=== PATIENT | male | born 1990 | race Caucasian/White ===

== ENCOUNTER 2017-12-21 05:39 | Emergency (ER) | payer OTHER ==
[~2017-12-21] VITALS: Ht 188 cm; Wt 122.5 kg
[2017-12-21] MEDS ORDERED: NORCO 5-325 TA1 EACH PO (12:44)
== END 2017-12-21 12:58 | disposition home or self-care (01) ==
LOC: ED 05:39
DX: S06.5X9A Traumatic subdural hemorrhage with loss of consciousness of unspecified duration, initial encounter (principal); S02.91XA Unspecified fracture of skull, initial encounter for closed fracture; V89.2XXA Person injured in unspecified motor-vehicle accident, traffic, initial encounter
CPT/HCPCS: 36415; 70450; 70486; 72125; 80048; 85025; 85610; 85730; 99284